=== PATIENT | male | born 1965 | race Caucasian/White ===

== ENCOUNTER 2016-07-18 07:46 | Emergency (ER) | payer MEDICAID ==
[~2016-07-18] VITALS: Ht 177.8 cm; Wt 87.8 kg
[~2016-07-18 07:46] MED LIST: ALPR0.25 PO; ARIP10TA13 PO; ASPI-496 PO; ASPI-515 PO; ATOR10TA9 PO; ATOR40TA PO; CLOP75TA22 PO; DIPH25CA61 PO; FERR325T20 PO; GEMF600T3 PO; HYDR-2443 PO; HYDR1TAB12 PO; IBUP-1222 PO; ISOS30TA8 PO; LISI-167 PO; LISI1POW; LISI2.5T PO; METH500T97 PO; METO25TA35 PO; METO50TA82 PO; METR500T PO; NICO1PAT10 TD; NITR0.4T SL; NITR0.4T8 SL; OMEP-110 PO; OXYC5TAB2 PO; PANT40TA5 PO; RANO500T2 PO; TICA90TA PO; TRAM50TA2 PO; [UNRECOGNIZED DRUG - OTHER]; [UNRECOGNIZED DRUG - REMARK]
[2016-07-18] MEDS ORDERED: LISI-167 PO (08:18)
[2016-07-18] MEDS ORDERED: GEMF600T3 PO (08:18)
[2016-07-18] MEDS ORDERED: SODIUM CHLORIDE FLUSH 10ML SYR IVF ONE (09:30)
[2016-07-18] MEDS ORDERED: SODIUM CHLORIDE 0.9% 1,000ML IVBOLUS ONE (09:30)
[2016-07-18 09:31] LABS: HEMOGLOBIN 14.1 g/dL (13.7-18.0)
[2016-07-18 09:49] LABS: BLOOD UREA NITROGEN 12 mg/dL (7-18)
[2016-07-18] MEDS ORDERED: ONDANSETRON 2MG/ML, 2ML ONE (09:50)
[2016-07-18] MEDS ORDERED: MORPHINE SULFATE 4 MG/ML, 1ML ONE (09:50)
[2016-07-18 09:57] LABS: IS PT STATUS REG ER OR PRE ER? YES
[2016-07-18] MEDS ORDERED: ONDANSETRON 2MG/ML, 2ML IVPush ONE (10:30)
[2016-07-18] MEDS ORDERED: MORPHINE SULFATE 4 MG/ML, 1ML IVPush PRN (10:30)
[2016-07-18 11:35] VITALS: BP 122/92
== END 2016-07-18 12:14 | disposition home or self-care (01) ==
LOC: ED 09:34
DX: R07.2 Precordial pain (principal); E78.5 Hyperlipidemia, unspecified; I25.2 Old myocardial infarction; I25.10 Atherosclerotic heart disease of native coronary artery without angina pectoris; F17.200 Nicotine dependence, unspecified, uncomplicated
CPT/HCPCS: 36415; 71010; 80048; 82040; 84484; 85025; 85379; 93005; 96361; 96374; 96375; 99285; J2405; J7030

== ENCOUNTER 2016-07-23 03:13 | Emergency (ER) | payer MEDICAID ==
[~2016-07-23] VITALS: Ht 177.8 cm; Wt 85.9 kg
[2016-07-23 03:15] VITALS: BP 132/82
== END 2016-07-23 04:02 | disposition left against medical advice (07) ==
LOC: ED 03:56
DX: M25.561 Pain in right knee (principal); Z53.21 Procedure and treatment not carried out due to patient leaving prior to being seen by health care provider

== ENCOUNTER 2016-11-28 17:57 | Emergency (ER) | payer MEDICAID ==
[~2016-11-28] VITALS: Ht 172.7 cm; Wt 80.0 kg
[2016-11-28] MEDS ORDERED: SODIUM CHLORIDE 0.9% 1,000 ML IV ONE (18:04)
[2016-11-28] MEDS ORDERED: ASPIRIN 81 MG TABLET CHEW ONE (18:20)
[2016-11-28] MEDS ORDERED: SODIUM CHLORIDE FLUSH 10ML SYR IVF ONE (18:30)
[2016-11-28] MEDS ORDERED: ASPIRIN 81 MG TABLET CHEW PO ONE (18:30)
[2016-11-28 18:41] LABS: HEMATOCRIT 43.5 % (39.2-51.8); HEMOGLOBIN 14.5 g/dL (13.7-18.0); WHITE BLOOD COUNT 4.6 x10^3/uL (3.4-10)
[2016-11-28 18:50] LABS: BLOOD UREA NITROGEN 9 mg/dL (7-18)
[2016-11-28] MEDS ORDERED: MORPHINE SULFATE 4 MG/ML, 1ML ONE (18:53)
[2016-11-28 18:54] LABS: IS PT STATUS REG ER OR PRE ER? YES
[2016-11-28] MEDS ORDERED: ONDANSETRON 2MG/ML, 2ML IVPush ONE (19:00)
[2016-11-28] MEDS ORDERED: MORPHINE SULFATE 4 MG/ML, 1ML IVPush PRN (19:00)
[2016-11-28] MEDS ORDERED: NITROGLYCERIN SINGLE TAB 0.4 MG SL PRN (20:00)
[2016-11-28 20:39] LABS: IS PT STATUS REG ER OR PRE ER? YES
[2016-11-28 22:03] VITALS: BP 118/84
== END 2016-11-28 22:06 | disposition home or self-care (01) ==
LOC: ED 19:22
DX: R07.2 Precordial pain (principal); E78.5 Hyperlipidemia, unspecified; G89.4 Chronic pain syndrome; I25.10 Atherosclerotic heart disease of native coronary artery without angina pectoris; F17.200 Nicotine dependence, unspecified, uncomplicated; Z79.82 Long term (current) use of aspirin
CPT/HCPCS: 36415; 71020; 80048; 82040; 83880; 84484; 85025; 85379; 93005; 96361; 96374; 99285; J7030

== ENCOUNTER 2016-12-02 19:05 | Emergency (ER) | payer MEDICAID ==
[~2016-12-02] VITALS: Ht 177.8 cm; Wt 83.1 kg
[2016-12-02] MEDS ORDERED: NITR0.4T8 SL (19:29)
[2016-12-02] MEDS ORDERED: SODIUM CHLORIDE 0.9% 1,000 ML IV ONE (19:34)
[2016-12-02 19:51] LABS: HEMATOCRIT 41.9 % (39.2-51.8); HEMOGLOBIN 13.9 g/dL (13.7-18.0); WHITE BLOOD COUNT 4.4 x10^3/uL (3.4-10)
[2016-12-02] MEDS ORDERED: MORPHINE SULFATE 4 MG/ML, 1ML IVPush PRN (20:00)
[2016-12-02] MEDS ORDERED: SODIUM CHLORIDE FLUSH 10ML SYR IVF ONE (20:00)
[2016-12-02 20:02] LABS: ASPARTATE AMINO TRANSFERASE 20 U/L (15-37); BLOOD UREA NITROGEN 26 mg/dL (7-18)
[2016-12-02 20:12] LABS: IS PT STATUS REG ER OR PRE ER? YES
[2016-12-02] MEDS ORDERED: MORPHINE SULFATE 4 MG/ML, 1ML ONE (20:42)
[2016-12-02 22:00] VITALS: BP 116/69
[2016-12-02 22:10] LABS: IS PT STATUS REG ER OR PRE ER? YES
== END 2016-12-02 23:25 | disposition home or self-care (01) ==
LOC: ED 21:29
DX: R07.89 Other chest pain (principal); E78.5 Hyperlipidemia, unspecified; I25.110 Atherosclerotic heart disease of native coronary artery with unstable angina pectoris; G89.4 Chronic pain syndrome; M19.90 Unspecified osteoarthritis, unspecified site
CPT/HCPCS: 36415; 71010; 80053; 83880; 84484; 85025; 93005; 96361; 96374; 99285; J7030

== ENCOUNTER 2016-12-03 19:05 | Observation (INO) | payer MEDICAID ==
[~2016-12-03] VITALS: Ht 177.8 cm; Wt 82.3 kg
[~2016-12-03 19:05] MED LIST changes: -ARIP10TA13 PO; +ARIP10TA33 PO; -CLOP75TA22 PO; +CLOP75TA52 PO; +FERR325T18 PO; -FERR325T20 PO; +NITR0.4T28 SL; -NITR0.4T8 SL
[2016-12-03] MEDS ORDERED: ONDANSETRON 2MG/ML, 2ML IVPush ONE (19:30)
[2016-12-03] MEDS ORDERED: SODIUM CHLORIDE 0.9% 1,000ML IVBOLUS ONE (19:30)
[2016-12-03] MEDS ORDERED: MORPHINE SULFATE 4 MG/ML, 1ML IVPush ONE ×3 (19:30→23:00)
[2016-12-03] MEDS ORDERED: SODIUM CHLORIDE FLUSH 10ML SYR IVF ONE (19:30)
[2016-12-03] MEDS ORDERED: ONDANSETRON 2MG/ML, 2ML ONE (19:38)
[2016-12-03] MEDS ORDERED: MORPHINE SULFATE 4 MG/ML, 1ML ONE ×2 (19:38→22:41)
[2016-12-03 19:48] LABS: HEMATOCRIT 42.2 % (39.2-51.8); HEMOGLOBIN 14.1 g/dL (13.7-18.0); WHITE BLOOD COUNT 3.5 x10^3/uL (3.4-10)
[2016-12-03 19:58] LABS: ASPARTATE AMINO TRANSFERASE 22 U/L (15-37); BLOOD UREA NITROGEN 16 mg/dL (7-18)
[2016-12-03 20:04] LABS: IS PT STATUS REG ER OR PRE ER? YES
[2016-12-03] MEDS ORDERED: OMNIPAQUE 350 MG/ML, 100ML BOTTLE ONE (20:57)
[2016-12-03 23:03] VITALS: BP 114/69
[2016-12-04] MEDS ORDERED: ONDANSETRON 2MG/ML, 2ML IVPush PRN
[2016-12-04] MEDS ORDERED: ACETAMINOPHEN 325 MG TABLET PO PRN
[2016-12-04] MEDS ORDERED: LABETALOL 5MG/ML, 20ML IVPush PRN
[2016-12-04] MEDS: HEPARIN 5,000 UNITS/ML, 1ML SQ SCH ×3 (00:19→17:43)
[2016-12-04] MEDS: LORazepam 1MG TABLET PO PRN ×4 (00:20→19:51)
[2016-12-04] MEDS: SODIUM CHLORIDE 0.9% 1,000 ML IV SCH ×3 (00:20→15:36)
[2016-12-04 02:20] LABS: IS PT STATUS REG ER OR PRE ER? NO
[2016-12-04 03:42] VITALS: BP 103/67
[2016-12-04] MEDS: morphine SULFATE 10 MG/ML, 1ML IVPush PRN ×4 (04:04→17:44)
[2016-12-04 04:27] LABS: DAU SCREEN DISCLAIMER
[2016-12-04 06:28] VITALS: BP 104/62
[2016-12-04 07:28] LABS: HEMATOCRIT 42.4 % (39.2-51.8); HEMOGLOBIN 13.9 g/dL (13.7-18.0); WHITE BLOOD COUNT 4.2 x10^3/uL (3.4-10)
[2016-12-04 07:36] LABS: BLOOD UREA NITROGEN 18 mg/dL (7-18)
[2016-12-04 07:44] LABS: IS PT STATUS REG ER OR PRE ER? NO
[2016-12-04 07:50] VITALS: BP 109/76
[2016-12-04] MEDS: ASPIRIN 81 MG TABLET EC PO SCH (07:53)
[2016-12-04] MEDS: GEMFIBROZIL 600 MG TABLET PO SCH (07:53)
[2016-12-04] MEDS: LISINOPRIL 10 MG TABLET PO SCH (07:53)
[2016-12-04] MEDS ORDERED: REGADENOSON 0.4 MG/5 ML SYRINGE ONE (08:31)
[2016-12-04] MEDS: HYDROcodone/APAP 5/325 TABLET PO PRN ×2 (14:04→21:09)
[2016-12-04 14:07] VITALS: BP 102/67
[2016-12-04] MEDS: METOPROLOL TARTRATE 25 MG TABLET PO SCH (17:44)
[2016-12-04 19:46] VITALS: BP 102/65
[2016-12-04] MEDS ORDERED: ATORVASTATIN 40 MG TABLET PO SCH (21:00)
[2016-12-05] MEDS: morphine SULFATE 10 MG/ML, 1ML IVPush PRN ×3 (00:13→07:47)
[2016-12-05] MEDS: HEPARIN 5,000 UNITS/ML, 1ML SQ SCH ×2 (00:17→07:48)
[2016-12-05 01:00] VITALS: BP 103/65
[2016-12-05] MEDS: METOPROLOL TARTRATE 25 MG TABLET PO SCH (06:42)
[2016-12-05 07:17] VITALS: BP 111/69
[2016-12-05] MEDS: LISINOPRIL 10 MG TABLET PO SCH (07:48)
[2016-12-05] MEDS: GEMFIBROZIL 600 MG TABLET PO SCH (07:48)
[2016-12-05] MEDS: ASPIRIN 81 MG TABLET EC PO SCH (07:48)
[2016-12-05] MEDS ORDERED: ISOSORBIDE MONONITRATE ER 30 MG TABLET PO SCH (09:00)
== END 2016-12-05 09:41 | disposition left against medical advice (07) ==
LOC: ED 22:18 → EDIP 22:20 → INTOOBSV 22:20 → 5SO 23:04
PROVIDERS: ADMIT Internal Medicine; ATTEND Internal Medicine
DX: I25.10 Atherosclerotic heart disease of native coronary artery without angina pectoris (principal); E78.5 Hyperlipidemia, unspecified; I11.9 Hypertensive heart disease without heart failure; I25.2 Old myocardial infarction; F33.9 Major depressive disorder, recurrent, unspecified; F17.210 Nicotine dependence, cigarettes, uncomplicated; Z81.1 Family history of alcohol abuse and dependence; Z83.3 Family history of diabetes mellitus; Z91.19 Patient's noncompliance with other medical treatment and regimen; Z95.1 Presence of aortocoronary bypass graft; Z95.5 Presence of coronary angioplasty implant and graft; I87.2 Venous insufficiency (chronic) (peripheral)
CPT/HCPCS: 36415; 71275; 78452; 80048; 80053; 80061; 80307; 83735; 84100; 84439; 84443; 84484; 85025; 85610; 85730; 93005; 93017; 96361; 96372; 96374; 96375; 96376; 99285; A9502; C8929; C9898; G0378; J1644; J2270; J2405; J2785; J7030; Q9967

== ENCOUNTER 2016-12-08 18:59 | Emergency (ER) | payer MEDICAID ==
[~2016-12-08] VITALS: Ht 167.6 cm; Wt 80.6 kg
[2016-12-08 19:03] VITALS: BP 100/64
== END 2016-12-08 20:43 | disposition home or self-care (01) ==
LOC: ED 19:24
DX: M17.11 Unilateral primary osteoarthritis, right knee (principal); Z95.5 Presence of coronary angioplasty implant and graft; Z95.1 Presence of aortocoronary bypass graft
CPT/HCPCS: 99284

== ENCOUNTER 2016-12-08 22:42 | Emergency (ER) | payer MEDICAID ==
[~2016-12-08] VITALS: Ht 177.8 cm; Wt 80.9 kg
[2016-12-08 22:45] VITALS: BP 103/65
[2016-12-08] MEDS ORDERED: ACETAMINOPHEN 325 MG TABLET ONE (23:47)
[2016-12-08 23:58] LABS: HEMATOCRIT 44.3 % (39.2-51.8); HEMOGLOBIN 14.6 g/dL (13.7-18.0); WHITE BLOOD COUNT 4.9 x10^3/uL (3.4-10)
[2016-12-09] MEDS ORDERED: ACETAMINOPHEN 325 MG TABLET PO ONE
[2016-12-09 00:03] LABS: BLOOD UREA NITROGEN 20 mg/dL (7-18)
[2016-12-09 00:13] LABS: IS PT STATUS REG ER OR PRE ER? YES
[2016-12-09] MEDS ORDERED: LORazepam 1MG TABLET ONE (00:22)
[2016-12-09] MEDS ORDERED: LORazepam 1MG TABLET PO ONE (00:30)
== END 2016-12-09 00:39 | disposition left against medical advice (07) ==
LOC: ED 23:42
DX: R07.89 Other chest pain (principal); I10 Essential (primary) hypertension; E78.5 Hyperlipidemia, unspecified; I25.10 Atherosclerotic heart disease of native coronary artery without angina pectoris; Z95.5 Presence of coronary angioplasty implant and graft
CPT/HCPCS: 36415; 71020; 80048; 82040; 84484; 85025; 93005; 99285

== ENCOUNTER 2016-12-12 21:29 | Emergency (ER) | payer MEDICAID ==
[~2016-12-12] VITALS: Ht 177.8 cm; Wt 78.5 kg
[2016-12-12 21:41] VITALS: BP 117/75
== END 2016-12-12 23:14 | disposition left against medical advice (07) ==
LOC: ED 23:08
DX: S09.90XA Unspecified injury of head, initial encounter (principal); I10 Essential (primary) hypertension; E78.5 Hyperlipidemia, unspecified; G89.4 Chronic pain syndrome; F17.210 Nicotine dependence, cigarettes, uncomplicated; X58.XXXA Exposure to other specified factors, initial encounter; Y93.89 Activity, other specified; Y92.89 Other specified places as the place of occurrence of the external cause; Y99.8 Other external cause status
CPT/HCPCS: 99281

== ENCOUNTER 2016-12-15 15:43 | Observation (INO) | payer MEDICAID ==
[~2016-12-15] VITALS: Ht 177.8 cm; Wt 81.9 kg
[2016-12-15] MEDS ORDERED: MORPHINE SULFATE 4 MG/ML, 1ML ONE ×2 (16:09→19:36)
[2016-12-15] MEDS ORDERED: NITROGLYCERIN SINGLE TAB 0.4 MG SL ONE (16:10)
[2016-12-15] MEDS: MORPHINE SULFATE 4 MG/ML, 1ML IVPush PRN ×2 (16:21→19:40)
[2016-12-15] MEDS ORDERED: ASPIRIN 81 MG TABLET CHEW ONE (16:29)
[2016-12-15] MEDS ORDERED: ONDANSETRON 2MG/ML, 2ML IVPush ONE (16:30)
[2016-12-15] MEDS ORDERED: SODIUM CHLORIDE FLUSH 10ML SYR IVF ONE (16:30)
[2016-12-15] MEDS ORDERED: ASPIRIN 81 MG TABLET CHEW PO ONE (16:30)
[2016-12-15] MEDS ORDERED: NITROGLYCERIN SINGLE TAB 0.4 MG SL PRN (16:30)
[2016-12-15 17:11] LABS: HEMATOCRIT 37.4 % (39.2-51.8); HEMOGLOBIN 12.4 g/dL (13.7-18.0); WHITE BLOOD COUNT 4.7 x10^3/uL (3.4-10)
[2016-12-15 17:15] LABS: BLOOD UREA NITROGEN 16 mg/dL (7-18)
[2016-12-15 17:22] LABS: IS PT STATUS REG ER OR PRE ER? YES
[2016-12-15] MEDS ORDERED: KETOROLAC 30 MG/1 ML IVPush ONE (18:30)
[2016-12-15] MEDS ORDERED: KETOROLAC 30 MG/1 ML ONE (18:33)
[2016-12-15] MEDS ORDERED: POTASSIUM CHLORIDE 20 MEQ TAB.ER.PRT ONE (20:02)
[2016-12-15] MEDS ORDERED: ONDANSETRON 2MG/ML, 2ML IVPush PRN (20:30)
[2016-12-15] MEDS ORDERED: POTASSIUM CHLORIDE 20 MEQ TAB.ER.PRT PO ONE ×2 (20:30→23:00)
[2016-12-15] MEDS ORDERED: ACETAMINOPHEN 325 MG TABLET PO PRN (20:30)
[2016-12-15] MEDS ORDERED: NITROGLYCERIN 0.4 MG BOTTLE (25 TABS) SL PRN (20:30)
[2016-12-15] MEDS ORDERED: DOCUSATE 100 MG CAPSULE PO PRN (20:30)
[2016-12-15] MEDS ORDERED: LORazepam 1MG TABLET PO PRN (20:30)
[2016-12-15] MEDS: SODIUM CHLORIDE 0.9% 1,000 ML IV SCH (21:04)
[2016-12-15 21:18] VITALS: BP 119/68
[2016-12-15] MEDS: HEPARIN 5,000 UNITS/ML, 1ML SQ SCH (22:16)
[2016-12-15 23:46] LABS: IS PT STATUS REG ER OR PRE ER? NO
[2016-12-16] VITALS (8 sets, daily range): BP systolic 102–144; BP diastolic 66–84
[2016-12-16] MEDS: morphine SULFATE 10 MG/ML, 1ML IVPush PRN ×8 (00:23→23:49)
[2016-12-16] MEDS: SODIUM CHLORIDE 0.9% 1,000 ML IV SCH ×3 (04:16→20:47)
[2016-12-16 05:03] LABS: IS PT STATUS REG ER OR PRE ER? NO
[2016-12-16] MEDS: HEPARIN 5,000 UNITS/ML, 1ML SQ SCH (06:02)
[2016-12-16] MEDS ORDERED: PANTOPRAZOLE 80 MG in SODIUM CHLORIDE 0.9% 50 ML IV ONE (07:00)
[2016-12-16 07:36] LABS: HEMATOCRIT 31.5 % (39.2-51.8); HEMOGLOBIN 10.3 g/dL (13.7-18.0)
[2016-12-16] MEDS: PANTOPRAZOLE 80 MG in SODIUM CHLORIDE 0.9% 100 ML IV SCH (08:04)
[2016-12-16] MEDS: ASPIRIN 81 MG TABLET EC PO SCH (08:08)
[2016-12-16 08:16] LABS: BLOOD UREA NITROGEN 26 mg/dL (7-18)
[2016-12-16] MEDS: LISINOPRIL 10 MG TABLET PO SCH (08:16)
[2016-12-16] MEDS: GEMFIBROZIL 600 MG TABLET PO SCH (08:16)
[2016-12-16 08:52] LABS: OCCBLD OBC PASS
[2016-12-16 13:06] LABS: HEMATOCRIT 30.7 % (39.2-51.8); HEMOGLOBIN 10.1 g/dL (13.7-18.0)
[2016-12-16] MEDS ORDERED: GOLYTELY 4,000ML ORAL.SOL PO ONE (16:00)
[2016-12-16 19:29] LABS: HEMATOCRIT 28.2 % (39.2-51.8); HEMOGLOBIN 9.3 g/dL (13.7-18.0)
[2016-12-17 00:37] VITALS: BP 113/70
[2016-12-17 00:57] LABS: HEMATOCRIT 27.5 % (39.2-51.8)
[2016-12-17] MEDS: PANTOPRAZOLE 80 MG in SODIUM CHLORIDE 0.9% 100 ML IV SCH ×2 (02:50→15:22)
[2016-12-17] MEDS: morphine SULFATE 10 MG/ML, 1ML IVPush PRN ×4 (02:56→12:18)
[2016-12-17] MEDS: SODIUM CHLORIDE 0.9% 1,000 ML IV SCH ×2 (04:22→14:51)
[2016-12-17 05:01] LABS: BLOOD UREA NITROGEN 12 mg/dL (7-18)
[2016-12-17 05:07] LABS: ASPARTATE AMINO TRANSFERASE 18 U/L (15-37)
[2016-12-17 07:16] VITALS: BP 113/71
[2016-12-17] MEDS: ASPIRIN 81 MG TABLET EC PO SCH (09:00)
[2016-12-17] MEDS ORDERED: EPHEDRINE 50 MG/ML, 1ML ONE (12:33)
[2016-12-17] MEDS ORDERED: PROPOFOL 10 MG/ML, 20ML ONE (12:33)
[2016-12-17] MEDS ORDERED: ONDANSETRON 2MG/ML, 2ML ONE (12:33)
[2016-12-17] MEDS ORDERED: ROCURONIUM 10 MG/ML ONE (12:33)
[2016-12-17] MEDS ORDERED: NEOSTIGMINE 1 MG/ML, 10ML ONE (12:33)
[2016-12-17] MEDS ORDERED: GLYCOPYRROLATE 0.2MG/1ML ONE (12:33)
[2016-12-17] MEDS ORDERED: FENTANYL PF 100 MCG/2ML ONE ×2 (12:40→13:22)
[2016-12-17] MEDS ORDERED: MEPERIDINE/PF 25MG/0.5ML IVPush PRN (13:00)
[2016-12-17] MEDS ORDERED: EPHEDRINE 50 MG/ML, 1ML IVPush PRN (13:00)
[2016-12-17] MEDS ORDERED: PROMETHAZINE 25 MG/ML, 1ML IV PRN (13:00)
[2016-12-17] MEDS ORDERED: hydrALAzine 20 MG/ML, 1ML IV PRN (13:00)
[2016-12-17] MEDS ORDERED: ALBUTEROL SULFATE 2.5 MG/3 ML NPPB PRN (13:00)
[2016-12-17] MEDS ORDERED: METOPROLOL 1 MG/ML, 5ML IV PRN (13:00)
[2016-12-17] MEDS ORDERED: HYDROmorphone 1 MG/ML, 1ML IV PRN (13:00)
[2016-12-17] MEDS ORDERED: ACETAMINOPHEN 325 MG TABLET PO PRN (13:00)
[2016-12-17] MEDS ORDERED: LABETALOL 5MG/ML, 20ML IV PRN (13:00)
[2016-12-17] MEDS ORDERED: ONDANSETRON 2MG/ML, 2ML IVPush PRN (13:00)
[2016-12-17] MEDS ORDERED: OXYcodone 5 MG/5 ML ORAL.SOL UDC PO PRN (13:00)
[2016-12-17] MEDS: FENTANYL PF 100 MCG/2ML IV PRN ×2 (13:23→13:53)
[2016-12-17] MEDS ORDERED: OXYcodone 5 MG/5 ML ORAL.SOL UDC ONE (13:23)
[2016-12-17 13:42] LABS: HEMOGLOBIN 8.2 g/dL (13.7-18.0)
[2016-12-17 14:23] VITALS: BP 102/67
[2016-12-17] MEDS: LISINOPRIL 10 MG TABLET PO SCH (14:49)
[2016-12-17] MEDS: GEMFIBROZIL 600 MG TABLET PO SCH (14:49)
== END 2016-12-17 16:22 | disposition left against medical advice (07) ==
LOC: ED 16:31 → INTOOBSV 18:02 → EDIP 18:02 → 5SO 20:44
PROVIDERS: ADMIT Internal Medicine; ATTEND Internal Medicine
DX: K92.2 Gastrointestinal hemorrhage, unspecified (principal); D50.0 Iron deficiency anemia secondary to blood loss (chronic); K26.9 Duodenal ulcer, unspecified as acute or chronic, without hemorrhage or perforation; I25.10 Atherosclerotic heart disease of native coronary artery without angina pectoris; I11.0 Hypertensive heart disease with heart failure; I50.30 Unspecified diastolic (congestive) heart failure; E43 Unspecified severe protein-calorie malnutrition; E78.5 Hyperlipidemia, unspecified; E87.6 Hypokalemia; F17.210 Nicotine dependence, cigarettes, uncomplicated; F33.9 Major depressive disorder, recurrent, unspecified; F41.1 Generalized anxiety disorder; G89.4 Chronic pain syndrome; I24.0 Acute coronary thrombosis not resulting in myocardial infarction; I25.2 Old myocardial infarction; I87.2 Venous insufficiency (chronic) (peripheral); K21.0 Gastro-esophageal reflux disease with esophagitis; K29.60 Other gastritis without bleeding; Z81.1 Family history of alcohol abuse and dependence; Z83.3 Family history of diabetes mellitus; Z87.11 Personal history of peptic ulcer disease; Z95.5 Presence of coronary angioplasty implant and graft; Z95.1 Presence of aortocoronary bypass graft; Z91.19 Patient's noncompliance with other medical treatment and regimen; Z91.14 Patient's other noncompliance with medication regimen
CPT/HCPCS: 36415; 43239; 45378; 71010; 80048; 80053; 82040; 82272; 83735; 83880; 84484; 85014; 85018; 85025; 87324; 88305; 93005; 93971; 96365; 96366; 96367; 96375; 96376; 99285; C9113; G0378; J1644; J1885; J2270; J2405; J2704; J2710; J3010; J7030; J3490

== ENCOUNTER 2016-12-25 15:54 | Inpatient (IN) | payer MEDICAID ==
[~2016-12-25] VITALS: Ht 177.8 cm; Wt 79.3 kg
[2016-12-25] MEDS ORDERED: MORPHINE SULFATE 4 MG/ML, 1ML ONE ×2 (16:56→20:47)
[2016-12-25 16:57] LABS: HEMATOCRIT 26.2 % (39.2-51.8); HEMOGLOBIN 8.8 g/dL (13.7-18.0); WHITE BLOOD COUNT 4.8 x10^3/uL (3.4-10)
[2016-12-25] MEDS ORDERED: MORPHINE SULFATE 4 MG/ML, 1ML IVPush ONE (17:00)
[2016-12-25 17:13] LABS: IS PT STATUS REG ER OR PRE ER? YES
[2016-12-25 17:20] LABS: ASPARTATE AMINO TRANSFERASE 17 U/L (15-37); BLOOD UREA NITROGEN 11 mg/dL (7-18)
[2016-12-25] MEDS: PANTOPRAZOLE 80 MG in SODIUM CHLORIDE 0.9% 100 ML IV SCH (18:36)
[2016-12-25] MEDS ORDERED: LIDOCAINE 1%, 20ML ONE (19:39)
[2016-12-25] MEDS: NICOTINE 14MG/24 HR PATCH.TD24 TD SCH (20:30)
[2016-12-25] MEDS ORDERED: LABETALOL 5MG/ML, 20ML IVPush PRN (20:30)
[2016-12-25] MEDS ORDERED: TRAZODONE 50MG TABLET PO PRN (20:30)
[2016-12-25] MEDS ORDERED: PANTOPRAZOLE 80 MG in SODIUM CHLORIDE 0.9% 100 ML IV SCH (20:30)
[2016-12-25] MEDS ORDERED: ACETAMINOPHEN 325 MG TABLET PO PRN (20:30)
[2016-12-25] MEDS ORDERED: ONDANSETRON ODT 4 MG PO PRN (20:30)
[2016-12-25] MEDS ORDERED: ONDANSETRON 2MG/ML, 2ML IVPush PRN (20:30)
[2016-12-25] MEDS: morphine SULFATE 10 MG/ML, 1ML IVPush PRN ×2 (20:51→23:59)
[2016-12-25 21:11] LABS: IS PT STATUS REG ER OR PRE ER? NO
[2016-12-25 21:20] VITALS: BP 126/78
[2016-12-25 21:21] VITALS: BP 126/78
[2016-12-25] MEDS: D5%-0.45% NACL 1,000 ML IV SCH (21:45)
[2016-12-25] MEDS: CARVEDILOL 3.125 MG TABLET PO SCH (21:45)
[2016-12-25 23:42] VITALS: BP 105/62
[2016-12-26] VITALS (9 sets, daily range): BP systolic 81–106; BP diastolic 48–68
[2016-12-26] MEDS: NITROGLYCERIN 0.4 MG BOTTLE (25 TABS) SL PRN ×2 (00:01→03:00)
[2016-12-26 02:21] LABS: HEMATOCRIT 25.1 % (39.2-51.8); HEMOGLOBIN 8.4 g/dL (13.7-18.0); WHITE BLOOD COUNT 3.9 x10^3/uL (3.4-10)
[2016-12-26 02:38] LABS: IS PT STATUS REG ER OR PRE ER? NO
[2016-12-26] MEDS: PANTOPRAZOLE 80 MG in SODIUM CHLORIDE 0.9% 100 ML IV SCH ×2 (02:47→16:17)
[2016-12-26 02:48] LABS: BLOOD UREA NITROGEN 10 mg/dL (7-18)
[2016-12-26] MEDS: morphine SULFATE 10 MG/ML, 1ML IVPush PRN ×6 (03:09→19:32)
[2016-12-26] MEDS: D5%-0.45% NACL 1,000 ML IV SCH ×2 (06:45→16:35)
[2016-12-26] MEDS: CARVEDILOL 3.125 MG TABLET PO SCH ×2 (07:54→18:00)
[2016-12-26] MEDS ORDERED: LISINOPRIL 10 MG TABLET PO SCH (09:00)
[2016-12-26] MEDS: GEMFIBROZIL 600 MG TABLET PO SCH (09:31)
[2016-12-26] MEDS: ASPIRIN 81 MG TABLET EC PO SCH (09:31)
[2016-12-26] MEDS ORDERED: ISOSORBIDE MONONITRATE ER 30 MG TABLET PO SCH (13:00)
[2016-12-26] MEDS ORDERED: POTASSIUM CHLORIDE 20 MEQ TAB.ER.PRT PO ONE (13:00)
[2016-12-26] MEDS: NICOTINE 14MG/24 HR PATCH.TD24 TD SCH (15:58)
[2016-12-26] MEDS: HYDROcodone/APAP 5/325 TABLET PO PRN (22:55)
[2016-12-27 02:00] VITALS: BP 91/52
[2016-12-27] MEDS: D5%-0.45% NACL 1,000 ML IV SCH (04:04)
[2016-12-27] MEDS: PANTOPRAZOLE 80 MG in SODIUM CHLORIDE 0.9% 100 ML IV SCH (04:05)
[2016-12-27] MEDS: HYDROcodone/APAP 5/325 TABLET PO PRN ×2 (04:09→09:08)
[2016-12-27 05:21] LABS: HEMOGLOBIN 8.5 g/dL (13.7-18.0); WHITE BLOOD COUNT 5.5 x10^3/uL (3.4-10)
[2016-12-27 05:27] LABS: BLOOD UREA NITROGEN 9 mg/dL (7-18)
[2016-12-27 08:00] VITALS: BP_SYST 93; BP_SYST 97; BP_DIAS 53; BP_DIAS 57
[2016-12-27] MEDS: ASPIRIN 81 MG TABLET EC PO SCH (08:35)
[2016-12-27] MEDS: GEMFIBROZIL 600 MG TABLET PO SCH (08:35)
[2016-12-27] MEDS: CARVEDILOL 3.125 MG TABLET PO SCH (08:35)
[2016-12-27] MEDS ORDERED: LISINOPRIL 5 MG TABLET PO SCH (09:00)
[2016-12-27] MEDS ORDERED: LISINOPRIL 10 MG TABLET PO SCH (09:00)
[2016-12-27] MEDS ORDERED: FLUTICASONE NASAL SPRAY 16GM NAS SCH (11:30)
[2016-12-27] MEDS ORDERED: SODIUM CHLORIDE NASAL SPRAY 45ML BOTTLE NAS SCH (11:30)
[2016-12-27] MEDS ORDERED: CETIRIZINE 10 MG TABLET PO PRN (11:30)
[2016-12-27 11:43] LABS: OCCBLD OBC PASS
[2016-12-27] MEDS ORDERED: OMNIPAQUE 350 MG/ML, 100ML BOTTLE ONE (12:24)
[2016-12-27] MEDS ORDERED: SODIUM CHLORIDE 0.9%, 500ML IVBOLUS ONE (14:00)
[2016-12-27] MEDS ORDERED: morphine SULFATE 10 MG/ML, 1ML IVPush PRN (14:30)
[2016-12-27] MEDS ORDERED: ALBUTEROL SULFATE 2.5 MG/3 ML NPPB SCH (15:00)
[2016-12-27] MEDS ORDERED: GUAIFENESIN 200 MG TABLET PO SCH (16:00)
[2016-12-27] MEDS ORDERED: OMEPRAZOLE 20 MG CAPSULE.DR PO SCH (17:00)
== END 2016-12-27 14:10 | disposition left against medical advice (07) | DRG 391 ==
LOC: ED 18:45 → EDIP 19:58 → 5SO 21:01
PROVIDERS: ADMIT Internal Medicine; ATTEND Internal Medicine
DX: K21.0 Gastro-esophageal reflux disease with esophagitis (principal); K26.4 Chronic or unspecified duodenal ulcer with hemorrhage; I24.8 Other forms of acute ischemic heart disease; D62 Acute posthemorrhagic anemia; I10 Essential (primary) hypertension; F17.200 Nicotine dependence, unspecified, uncomplicated; E78.5 Hyperlipidemia, unspecified; I25.10 Atherosclerotic heart disease of native coronary artery without angina pectoris; I25.2 Old myocardial infarction; K59.00 Constipation, unspecified; Z79.82 Long term (current) use of aspirin; Z79.899 Other long term (current) drug therapy; Z91.14 Patient's other noncompliance with medication regimen; Z95.1 Presence of aortocoronary bypass graft; Z95.5 Presence of coronary angioplasty implant and graft
CPT/HCPCS: 36415; 71010; 71275; 74022; 80048; 80053; 81001; 82272; 82962; 83735; 84100; 84484; 85018; 85025; 85610; 85730; 86850; 86900; 86923; 87086; 93005; 96374; Q9967; C9113; J2270

== ENCOUNTER 2017-01-02 19:46 | Emergency (ER) | payer MEDICAID ==
[~2017-01-02] VITALS: Ht 177.8 cm; Wt 80.0 kg
[2017-01-02 20:36] LABS: ASPARTATE AMINO TRANSFERASE 34 U/L (15-37); BLOOD UREA NITROGEN 18 mg/dL (7-18); HEMATOCRIT 29.2 % (39.2-51.8); HEMOGLOBIN 9.3 g/dL (13.7-18.0); WHITE BLOOD COUNT 5.6 x10^3/uL (3.4-10)
[2017-01-02 20:44] LABS: IS PT STATUS REG ER OR PRE ER? YES
[2017-01-02] MEDS ORDERED: ASPIRIN 325 MG TABLET PO ONE (21:30)
[2017-01-02] MEDS ORDERED: PLEASE ENTER HEIGHT AND WEIGHT MC SCH (21:31)
[2017-01-02] MEDS ORDERED: ASPIRIN 325 MG TABLET ONE (21:42)
[2017-01-02 23:19] VITALS: BP 100/56
[2017-01-03 00:33] LABS: IS PT STATUS REG ER OR PRE ER? YES
== END 2017-01-03 00:50 | disposition home or self-care (01) ==
LOC: ED 21:03
DX: R07.2 Precordial pain (principal); E78.5 Hyperlipidemia, unspecified; I25.810 Atherosclerosis of coronary artery bypass graft(s) without angina pectoris; I25.2 Old myocardial infarction; Z95.1 Presence of aortocoronary bypass graft
CPT/HCPCS: 36415; 71010; 80053; 84484; 85025; 85610; 93005; 99285

== ENCOUNTER 2017-01-05 23:54 | Emergency (ER) | payer MEDICAID ==
[~2017-01-05] VITALS: Ht 170.2 cm; Wt 84.0 kg
[~2017-01-05 23:54] MED LIST changes: +NICO-485 TD; -NICO1PAT10 TD
[2017-01-06 01:15] LABS: ASPARTATE AMINO TRANSFERASE 27 U/L (15-37); BLOOD UREA NITROGEN 17 mg/dL (7-18)
[2017-01-06 01:40] LABS: HEMATOCRIT 24.8 % (39.2-51.8); HEMOGLOBIN 7.8 g/dL (13.7-18.0); WHITE BLOOD COUNT 6.5 x10^3/uL (3.4-10)
[2017-01-06 02:13] VITALS: BP 104/72
== END 2017-01-06 02:21 | disposition home or self-care (01) ==
LOC: ED 01-06 00:44
DX: R42 Dizziness and giddiness (principal); Z72.9 Problem related to lifestyle, unspecified; E78.5 Hyperlipidemia, unspecified; I25.10 Atherosclerotic heart disease of native coronary artery without angina pectoris; Z95.1 Presence of aortocoronary bypass graft; Z95.5 Presence of coronary angioplasty implant and graft
CPT/HCPCS: 36415; 80053; 85025; 93005; 99284; 99285

== ENCOUNTER 2017-01-10 20:40 | Emergency (ER) | payer MEDICAID ==
[~2017-01-10] VITALS: Ht 177.8 cm; Wt 80.0 kg
[2017-01-10] MEDS ORDERED: ASPIRIN 81 MG TABLET CHEW PO ONE (21:30)
[2017-01-10] MEDS ORDERED: ASPIRIN 81 MG TABLET CHEW ONE (21:47)
[2017-01-10 21:59] LABS: BLOOD UREA NITROGEN 16 mg/dL (7-18)
[2017-01-10 22:00] LABS: HEMATOCRIT 24.2 % (39.2-51.8); HEMOGLOBIN 7.9 g/dL (13.7-18.0); WHITE BLOOD COUNT 4.2 x10^3/uL (3.4-10)
[2017-01-10 22:08] LABS: IS PT STATUS REG ER OR PRE ER? YES
[2017-01-11 00:40] LABS: IS PT STATUS REG ER OR PRE ER? YES
[2017-01-11 01:34] VITALS: BP 103/69
== END 2017-01-11 01:36 | disposition home or self-care (01) ==
LOC: ED 21:18
DX: R07.9 Chest pain, unspecified (principal); I25.10 Atherosclerotic heart disease of native coronary artery without angina pectoris; E78.5 Hyperlipidemia, unspecified; M19.90 Unspecified osteoarthritis, unspecified site; I10 Essential (primary) hypertension
CPT/HCPCS: 36415; 71010; 80048; 82040; 84484; 85025; 93005; 99285